=== PATIENT | female | born 1945 | race Caucasian/White ===

== ENCOUNTER 2019-01-02 10:09 | Emergency (ER) | payer MEDICARE, OTHER ==
[~2019-01-02] VITALS: Ht 154.9 cm; Wt 81.7 kg
[2019-01-02] MEDS ORDERED: LASIX 20 MG TAB20 MG PO (10:13)
[2019-01-02] MEDS ORDERED: TRAMADOL 50 MG50 MG PO (10:14)
[2019-01-02] MEDS ORDERED: LEVOXYL25 MCG PO (10:14)
[2019-01-02] MEDS ORDERED: ATORVASTATIN CA40 MG PO (10:14)
[2019-01-02] MEDS ORDERED: COZAAR 25 MG TA25 M1 PO (10:14)
[2019-01-02] MEDS ORDERED: PREMARIN0.3 MG PO (10:14)
[2019-01-02 10:44] LABS: ABSOLUTE BASOPHILS 0.1 thou/uL (0.0-0.2); ABSOLUTE EOSINOPHILS 0.5 thou/uL (0.0-0.7); ABSOLUTE MONOCYTES 0.6 thou/uL (0.0-1.2); ABSOLUTE NEUTROPHILS 6.5 thou/uL (1.6-8.1); BASOPHILS 0.6 %; EOSINOPHILS 4.9 %; HEMATOCRIT 40.2 % (37.0-47.0); HEMOGLOBIN 13.7 gm/dL (12.0-15.0); LYMPHOCYTES 20.7 %; MCH 29.9 pg (26.0-34.0); MCV 88.1 fL (80.0-100.0); MONOCYTES 6.6 %; MPV 8.9 fl. (7.2-11.1); NUCLEATED RBCS 0 /100WBC; PLATELET COUNT* 220 thou/uL (150-400); POLYS 67.2 %; RBC 4.57 mil/uL (4.20-5.00); RDW-CV 12.4 % (10.5-14.5); WBC 9.6 thou/uL (4.0-11.0)
[2019-01-02 10:58] LABS: ALBUMIN 3.2 g/dL (3.4-5.0); CALCIUM 9.1 mg/dL (8.5-10.1); CREATININE 1.6 mg/dL (0.6-1.3); POTASSIUM 3.8 mmol/L (3.5-5.1); TOTAL BILIRUBIN 1.4 mg/dL (<0.1-1.0); TOTAL PROTEIN 7.2 g/dL (6.4-8.2)
[2019-01-02] MEDS ORDERED: NORCO 5-325 TA1 EACH PO (12:57)
[2019-01-02 13:26] VITALS: BP 134/75
== END 2019-01-02 13:03 | disposition home or self-care (01) ==
LOC: M.ERS 10:09
PROVIDERS: Family Medicine
DX: S73.004A Unspecified dislocation of right hip, initial encounter (principal); I10 Essential (primary) hypertension; J45.909 Unspecified asthma, uncomplicated; Z88.8 Allergy status to other drugs, medicaments and biological substances; X58.XXXA Exposure to other specified factors, initial encounter; Y93.89 Activity, other specified; Y92.89 Other specified places as the place of occurrence of the external cause; Y99.8 Other external cause status

== ENCOUNTER 2019-05-15 21:54 | Emergency (ER) | payer MEDICARE, OTHER ==
[~2019-05-15] VITALS: Ht 154.9 cm; Wt 83.9 kg
--- NOTE | ~2019-05-15 | CON ---
[address] [address] CONSULTATION Name: ALEXIYONNY ORTIZ [id number]: 05/15/19 Attend Phys: Discharge: 05/16/19 Date of : 45 Report #: [id number] THIS REPORT FOR: //name// CC: Fredrick Dean HISTORY OF PRESENT ILLNESS: This 74-year-old female was seen, complaining of severe pain about her right hip. She related that she underwent a right total hip replacement initially in 2003. She related that she wore that hip out 9 years later and had a right total hip revision performed about 7 years ago. Since her right hip revision, she has had her hip to dislocate about 7 times. She related that this morning she was working in her yard on her property, cleaning up leaves and doing a lot of other work when she placed her hip in a provocative position and it dislocated. She lied in her yard all day until her returned from work and brought her to the Emergency Room. She was advised to undergo a closed reduction of her right total hip dislocation. The risks and benefits of this procedure were discussed with her and she desired to proceed. Her hip will be reduced and she will subsequently be followed as an inpatient. She was advised that if she desires to consider a right total hip revision in the future that she would be referred to a total joint specialist for this procedure. DIAGNOSIS: Recurrent right total hip dislocation. By: [id number] Rodríguez MD /branden
--- NOTE | ~2019-05-15 | OP ---
[address] [address] OPERATIVE REPORT Name: YONNY TRUONG Room: [facility]#: [id number] Admission: 05/15/19 Attend Phys: Discharge: 05/16/19 Date of : 45 Report #: [id number] THIS REPORT FOR: //name// CC: Fredrick Dean PREOPERATIVE DIAGNOSIS: Posterior dislocation of right total hip replacement arthroplasty. POSTOPERATIVE DIAGNOSIS: Posterior dislocation of right total hip replacement arthroplasty. PROCEDURE PERFORMED: Closed reduction of dislocated right total hip. DESCRIPTION OF PROCEDURE: Following a timeout procedure, the right total hip dislocation was reduced with the aid of 3 assistants. The hip traction was applied to the hip with the hip acutely flexed, ____ and internal rotation. As traction was being applied, the hip was slowly externally rotated. As the hip was extended, the hip could be felt to reduce. Operative x-rays were obtained, which confirmed reduction of her right hip dislocation. She tolerated the procedure well. She was recovered in the Emergency Room and will subsequently be discharged home. By: [id number] Rodríguez MD /branden
[~2019-05-15 21:54] MED LIST: ATORVASTATIN CA40 MG PO; COZAAR 25 MG TA25 M1 PO; LASIX 20 MG TAB20 MG PO; LEVOXYL25 MCG PO; NORCO 5-325 TA1 EACH PO; PREMARIN0.3 MG PO; TRAMADOL 50 MG50 MG PO
[2019-05-15 22:14] LABS: ABSOLUTE LYMPHOCYTES 1.9 thou/uL (0.8-5.3); ABSOLUTE MONOCYTES 0.8 thou/uL (0.0-1.2); ABSOLUTE NEUTROPHILS 8.2 thou/uL (1.6-8.1); BASOPHILS 0.4 %; EOSINOPHILS 0.4 %; HEMATOCRIT 41.1 % (37.0-47.0); HEMOGLOBIN 14.1 gm/dL (12.0-15.0); MCHC 34.3 g/dL (28.0-37.0); MCV 90.5 fL (80.0-100.0); MONOCYTES 6.9 %; MPV 8.4 fl. (7.2-11.1); NUCLEATED RBCS 0 /100WBC; PLATELET COUNT* 256 thou/uL (150-400); POLYS 75.3 %; RBC 4.54 mil/uL (4.20-5.00); RDW-CV 12.7 % (10.5-14.5)
[2019-05-15 22:20] LABS: CALCIUM 9.2 mg/dL (8.5-10.1); CREATININE 1.7 mg/dL (0.6-1.3); POTASSIUM 4.1 mmol/L (3.5-5.1)
[2019-05-15 22:21] LABS: APTT 26.1 Seconds (25.0-31.3); PROTIME 10.1 Seconds (9.20-11.50)
[2019-05-15 22:31] LABS: ALBUMIN 3.6 g/dL (3.4-5.0); TOTAL BILIRUBIN 1.3 mg/dL (<0.1-1.0); TOTAL PROTEIN 7.5 g/dL (6.4-8.2)
[2019-05-15] MEDS ORDERED: PERCOCET 5-3251 EACH PO (23:59)
[2019-05-16 01:59] VITALS: BP 150/68
== END 2019-05-16 02:00 | disposition home or self-care (01) ==
LOC: M.ERS 21:54
PROVIDERS: Family Medicine
DX: S73.034A Other anterior dislocation of right hip, initial encounter (principal); I10 Essential (primary) hypertension; J45.909 Unspecified asthma, uncomplicated; Z96.641 Presence of right artificial hip joint; Z88.8 Allergy status to other drugs, medicaments and biological substances; Z88.6 Allergy status to analgesic agent; W18.39XA Other fall on same level, initial encounter; Y92.89 Other specified places as the place of occurrence of the external cause; Y93.89 Activity, other specified; Y99.8 Other external cause status